=== PATIENT | female | born 1945 | race Two or more races ===

== ENCOUNTER 2017-09-18 12:21 | Inpatient (IN) | payer OTHER ==
[~2017-09-18] VITALS: Ht 157.5 cm; Wt 71.2 kg
[~2017-09-18 12:21] MED LIST: AMBIEN10 MG PO; AMBIEN5 MG PO; COZAAR50 MG; OMEPRAZOLE20 MG; PREVACID30 MG PO; PROTONIX40 MG PO; SEPTRA DS TABLE1 TAB PO; SYNTHROID88 MCG PO; ZANTAC300 MG PO
[2017-09-26] MEDS ORDERED: PROTONIX40 MG PO (09:59)
[2017-09-26] MEDS ORDERED: GAVISCON ES TA1 EACH PO (10:00)
[2017-09-26] MEDS ORDERED: PROZAC20 MG PO (10:01)
[2017-09-26] MEDS ORDERED: INTEGRA F CAPS1 EACH PO (10:02)
== END 2017-09-26 13:37 | disposition home or self-care (01) | DRG 378 ==
LOC: ER 12:21 → SEC-K 19:53 → MEDJ 09-21 14:40
PROC: 30233N1 Transfusion of Nonautologous Red Blood Cells into Peripheral Vein, Percutaneous Approach (ICD-10-PCS; 2017-09-18)
PROC: 3E0F7GC Introduction of Other Therapeutic Substance into Respiratory Tract, Via Natural or Artificial Opening (ICD-10-PCS; 2017-09-19)
PROC: 4A033R1 Measurement of Arterial Saturation, Peripheral, Percutaneous Approach (ICD-10-PCS; 2017-09-20)
PROC: 0DB68ZX Excision of Stomach, Via Natural or Artificial Opening Endoscopic, Diagnostic (ICD-10-PCS; principal; 2017-09-24)
PROC: 0DJD8ZZ Inspection of Lower Intestinal Tract, Via Natural or Artificial Opening Endoscopic (ICD-10-PCS; 2017-09-25)
DX: K92.2 Gastrointestinal hemorrhage, unspecified (principal); J44.1 Chronic obstructive pulmonary disease with (acute) exacerbation; J45.41 Moderate persistent asthma with (acute) exacerbation; D50.0 Iron deficiency anemia secondary to blood loss (chronic); I10 Essential (primary) hypertension; K70.30 Alcoholic cirrhosis of liver without ascites; K29.60 Other gastritis without bleeding; K44.9 Diaphragmatic hernia without obstruction or gangrene; K21.0 Gastro-esophageal reflux disease with esophagitis; D69.59 Other secondary thrombocytopenia

== ENCOUNTER 2018-01-09 12:41 | Emergency (ER) | payer OTHER ==
[~2018-01-09] VITALS: Ht 154.9 cm; Wt 77.1 kg
[~2018-01-09 12:41] MED LIST changes: +GAVISCON ES TA1 EACH PO; +INTEGRA F CAPS1 EACH PO; +PROZAC20 MG PO
[2018-01-09] MEDS ORDERED: XOPENEX CO1.25 MG/0. IH ×2 (15:37→15:38)
[2018-01-09] MEDS ORDERED: TESSALON PERLE100 M1 PO ×2 (15:38→15:39)
[2018-01-09] MEDS ORDERED: ZITHROMAX500 MG PO ×2 (15:38→15:39)
[2018-01-09] MEDS ORDERED: MEDROLPACK PO (15:46)
== END 2018-01-09 22:00 | disposition home or self-care (01) ==
LOC: ER 12:41
DX: J45.901 Unspecified asthma with (acute) exacerbation (principal); G89.11 Acute pain due to trauma; G44.309 Post-traumatic headache, unspecified, not intractable; J11.1 Influenza due to unidentified influenza virus with other respiratory manifestations

== ENCOUNTER 2018-03-26 17:54 | Emergency (ER) | payer OTHER ==
[~2018-03-26] VITALS: Ht 157.5 cm; Wt 76.7 kg
[~2018-03-26 17:54] MED LIST changes: +MEDROLPACK PO; +TESSALON PERLE100 M1 PO; +XOPENEX CO1.25 MG/0. IH; +ZITHROMAX500 MG PO
== END 2018-03-26 22:03 | disposition home or self-care (01) ==
LOC: ER 17:54
DX: J45.998 Other asthma (principal); J44.9 Chronic obstructive pulmonary disease, unspecified; J11.1 Influenza due to unidentified influenza virus with other respiratory manifestations

== ENCOUNTER 2018-05-25 15:50 | Emergency (ER) | payer OTHER ==
[~2018-05-25] VITALS: Ht 157.5 cm; Wt 77.1 kg
== END 2018-05-25 20:24 | disposition home or self-care (01) ==
LOC: ER 15:50
DX: S90.31XA Contusion of right foot, initial encounter (principal); J44.9 Chronic obstructive pulmonary disease, unspecified; W18.09XA Striking against other object with subsequent fall, initial encounter; Y93.89 Activity, other specified; Y92.89 Other specified places as the place of occurrence of the external cause; Y99.8 Other external cause status